=== PATIENT | female | born 1955 | race Caucasian/White ===

== ENCOUNTER → 2017-01-19 | Outpatient (CLI) | payer OTHER ==
[~2017-01-19] MED LIST: CLARITIN10 MG PO; LEVOTHROID (S100 MCG PO; MULTI VITAMIN1 EACH PO; PRINIVIL OR ZES10 MG PO; TYLENOL EXTRA500 MG PO
== END | disposition disaster alternative care site (69) ==
LOC: GRAD 09:47
DX: C56.1 Malignant neoplasm of right ovary (principal); D70.1 Agranulocytosis secondary to cancer chemotherapy; I15.8 Other secondary hypertension
CPT/HCPCS: Q9967

== ENCOUNTER → 2017-04-14 | Outpatient (CLI) | payer OTHER | END | disposition disaster alternative care site (69) | LOC: GRAD 08:48 | DX: C56.1 Malignant neoplasm of right ovary (principal); D70.1 Agranulocytosis secondary to cancer chemotherapy; I15.8 Other secondary hypertension; R91.8 Other nonspecific abnormal finding of lung field; R59.0 Localized enlarged lymph nodes ==